=== PATIENT | female | born 1945 | race Caucasian/White ===

== ENCOUNTER → 2016-06-23 | Outpatient (CLI) | payer OTHER ==
[~2016-06-23] MED LIST: ASPIR-TRIN325 MG PO; CARTIA XT PO; CIPRO PO; FLOVENT DISKU250 MCG INH; METOPROLOL SUCC25 MG PO; SPIRIVA18 MCG INH; SYMBICORT INH; SYNTHROID125 PO; TRAZODONE PO; ULORIC80 MG PO; XARELTO20 MG PO; ZOCOR PO
--- NOTE | ~2016-06-23 | CR63 ---
[facility], [place]. [facility] A Service of [facility] & [facility] RADIOLOGY TEXT RESULTS PATIENT: PETRONA GARCIA LOCATION: [facility] : 41 UNIT #: [id number] AGE: [address]: Marsha Sainz APRN SEX: F ORDER DR: [id number] [address] [address] [id number] O MR#: [id number] Acc #: [id number] NAME: PETRONA GARCIA : 1945 SEX: F STUDY DATE/TIME: 06/23/2016 11:31 UNIT: [facility] ROOM: STUDY DESCRIPTION: CR Chest 2 View Attending Physician: Marsha Sainz A.P.R.N. Referring Physician: Marsha Sainz A.P.R.N. Ordering Physician: Marsha Sainz A.P.R.N. Primary Care Physician: Chloé Garcia M.D. MEDICAL IMAGING REPORT This report is preliminary unless electronic signature is present. EXAM Chest PA and lateral 06/23/1978 COMPARISON Examination dated 05/29/2016 HISTORY COPD, shortness of breath, cough since March 2016 FINDINGS PA and lateral views of the chest are obtained. The exam is compared to the study of 05/29 and 05/07/2016. The infiltrates described in both lungs have improved but have not cleared completely. These are bilateral. Cardiac size is enlarged but stable. CONCLUSION Decrease in but not complete clearing of the pulmonary infiltrates. Dictated by... Trenton Shaw M.D. THIS IS AN ELECTRONICALLY VERIFIED REPORT Trenton Shaw M.D. at 06/23/2016 5:06 PM BORIS/sahr TD: 06/23/2016 15:20 JOB #: [id number] MEDICAL IMAGING REPORT
== END | disposition home or self-care (01) ==
LOC: SRAD 11:03
DX: J44.1 Chronic obstructive pulmonary disease with (acute) exacerbation (principal); R91.8 Other nonspecific abnormal finding of lung field
CPT/HCPCS: 71020

== ENCOUNTER → 2016-07-01 | Outpatient (CLI) | payer OTHER ==
--- NOTE | ~2016-07-01 | PFT ---
[id number] [facility] [address] [place], [place] [address] [id number] O MR#: [id number] NAME: PETRONA GARCIA ROOM: SEX: F STUDY DATE/TIME: 08/15/2016 : 1945 AGE: 71 STUDY DESCRIPTION: Attending Physician: Ame Morales A.P.R.N. Referring Physician: Ame Morales A.P.R.N. Primary Care Physician: Chloé Garcia M.D. PULMONARY DIAGNOSTIC REPORT EXAM Pulmonary Function Study FINDINGS The test meets ATS criteria for acceptability and repeatability. Please see scanned sheet for actual lung volumes and flow volume loops. Spirometry shows moderate obstruction with no significant bronchodilator response. Lung volumes are low normal. Diffusion capacity is mildly to moderately reduced, it does correct for alveolar ventilation. There is some evidence of poor gas mixing. The pulmonary function test is consistent with moderate COPD. Dictated by... Antonina Gaines TD: 08/15/2016 21:59 JOB #: [id number] PULMONARY DIAGNOSTIC REPORT Page 1 of 1
--- NOTE | ~2016-07-01 | PFT ---
[id number] [facility] [address] [place], [place] [address] [id number] O MR#: [id number] NAME: PETRONA GARCIA ROOM: SEX: F STUDY DATE/TIME: 08/15/2016 : 1945 AGE: 71 STUDY DESCRIPTION: Attending Physician: Ame Morales A.P.R.N. Referring Physician: Ame Morales A.P.R.N. Primary Care Physician: Chloé Garcia M.D. PULMONARY DIAGNOSTIC REPORT EXAM Pulmonary Function Study FINDINGS The test meets ATS criteria for acceptability and repeatability. Please see scanned sheet for actual and lung volume loops. Spirometry shows moderate obstruction. There is no significant bronchodilator response. Lung volumes are low normal. Diffusion capacity shows moderate to severe decrease, it does not correct entirely for alveolar ventilation. This may be consistent with moderate COPD or asthma. There is restriction that may be associated with body weight as well. Dictated by... Antonina Gaines/saima TD: 08/15/2016 20:21 JOB #: [id number] PULMONARY DIAGNOSTIC REPORT Page 1 of 1
== END | disposition home or self-care (01) ==
LOC: CRC 13:23
DX: J44.9 Chronic obstructive pulmonary disease, unspecified (principal); R06.02 Shortness of breath
CPT/HCPCS: 94060; 94726; 94729